=== PATIENT | male | born 1925 | race Caucasian/White ===

== ENCOUNTER 2017-01-27 19:44 | Inpatient (IN) | payer OTHER ==
[~2017-01-27] VITALS: Ht 170.2 cm; Wt 92.9 kg
--- NOTE | ~2017-01-27 | 2DMMODE ---
[facility] Daniela [address] [address] 2 D/M-MODE ECHOCARDIOGRAM Name: PERSAUDGEORGIA Room #: 315-P ADM IN M.R.#: [id number] Admission: 01/27/17 Attend Phys: Chanel Leung Discharge: Date of : [birth year]/19/[birth year] Date of Service: 01/28/17 1400 Report #: [id number] THIS REPORT FOR: //name// APPROVED REPORT Study performed: 01/28/2017 12:23:39 EXAM: Comprehensive 2D, Doppler, and color-flow Echocardiogram Patient Location: Bedside Room #: 315 Blood Pressure: 137/79 mmHg HR: 88 bpm Rhythm: Atrial Fibrillation Other Information Study Quality: Adequate Indications Atrial Fibrillation CAD Hypertension/HDD 2D Dimensions RVDd: 38.45 mm Volumes Left Atrial Volume (Systole) Single Plane 4CH: 65.49 mL Single Plane 2CH: 54.40 mL LA ESV Index: 34.00 mL/m2 Aortic Valve AoV Peak Everette.: 1.20 m/s AO Peak Gr.: 5.78 mmHg LVOT Max P.90 mmHg LVOT Max V: 0.69 m/s Mitral Valve MV Decel. Time: 163.72 ms MV E Max Everette.: 1.31 m/s Pulmonary Valve PV Peak Everette.: 0.65 m/s PV Peak Gr.: 1.66 mmHg [facility] [address] [place] [address] 2 D/M-MODE ECHOCARDIOGRAM Name: GEORGIA PERSAUD Room #: 315-P ADM IN M.R.#: [id number] Admission: 01/27/17 Attend Phys: Chanel Leung Discharge: Date of : 12/19/[birth year] Date of Service: 01/28/17 1400 Report #: [id number] Tricuspid Valve TR Peak Everette.: 2.42 m/s TR Peak Gr.: 23.46 mmHg Left Ventricle The left ventricle is normal size. There is normal LV segmental wall motion. The left ventricular systolic function is normal. The left ventricular ejection fraction is within the normal range. LVEF is 55-60%. Diastolic function cannot accurately assessed. Right Ventricle The right ventricle is normal size. The right ventricular systolic function is normal. Atria Left atrium is at the upper limits of normal. Right atrium is dilated. Aortic Valve The aortic valve is calcified Trace to mild aortic regurgitation. There is no aortic valvular stenosis. Mitral Valve Mild mitral annular calcification Mild mitral regurgitation. No evidence of mitral valve stenosis. Tricuspid Valve The tricuspid valve is normal in structure. There is no tricuspid valve stenosis. There is mild tricuspid regurgitation. The right atrial pressure is estimated at mmHg. There is no pulmonary hypertension. The estimated PAP was 23 mmHg. Plus the right atrial pressure. Pulmonic Valve The pulmonary valve is normal in structure. There is no pulmonic valvular regurgitation. Great Vessels The aortic root is normal in size. IVC is not well visualized. Pericardium There is no pericardial effusion. <Conclusion> The left ventricular systolic function is normal. [facility] [address] [place] [address] 2 D/M-MODE ECHOCARDIOGRAM Name: GEORGIA PERSAUD Room #: 315-P ADM IN M.R.#: [id number] Admission: 01/27/17 Attend Phys: Chanel Leung Discharge: Date of : 12/19/[birth year] Date of Service: 01/28/17 1400 Report #: [id number] There is normal LV segmental wall motion. LVEF 55-60%. Both atria are dilated. The aortic valve is calcified, not stenotic. Trace to mild aortic regurgitation. Mild mitral annular calcification Mild mitral regurgitation. There is no pericardial effusion. Pulmonary artery pressure was 23 mmHg. Plus the right atrial pressure. <ELECTRONICALLY SIGNED> By: Shamar Larson MD, FACC 01/28/17 1400 1400 99 Shamar Larson MD, FACC /INF
--- NOTE | ~2017-01-27 | HC ---
[facility] [place] [address] CONSULTATION Name: GEORGIA PERSAUD Room #: 462-P ADM IN M.R.#: [id number] Admission: 01/27/17 Attend Phys: Garland Bravo MD Discharge: Date of : 12/19/[birth year] Report #: [id number] THIS REPORT FOR: //name// CC: Josue Bravo PULMONARY CONSULTATION PRIMARY CARE PHYSICIAN: Josue Vera M.D. REFERRAL PHYSICIAN: Garland Bravo M.D. REASON FOR REFERRAL: Acute hypercapnic hypoxic respiratory failure. HISTORY OF PRESENT ILLNESS: The patient is an 89-year-old white male who has been admitted for bowel obstruction. He subsequently underwent bowel surgery. He has been admitted since 01/27/2017. Surgery was performed on 01/30/2017. He is felt to have small-bowel obstruction. Early this morning, the patient was found to be difficult to arouse. Arterial blood gas shows hypercapnic hypoxic respiratory failure. A pulmonary consultation was requested. The patient was not given any narcotics overnight. At present, he is more arousable on BiPAP. He follows some commands. He does not know what year this is. Otherwise, he denies any chest pain or dyspnea. PAST MEDICAL HISTORY: As mentioned above, including chronic atrial fibrillation, on chronic anticoagulation; coronary artery disease, undergone coronary artery bypass surgery in the past; hypotension; benign prostate hypertrophy and hyperlipidemia. PAST SURGICAL HISTORY: As mentioned above, including past history of colectomy and left knee arthroplasty. ALLERGIES: CONTRAST DYE, FENOFIBRATE and SIMVASTATIN, reactions not specified. MEDICATIONS: Reviewed. FAMILY HISTORY: Noncontributory. SOCIAL HISTORY: The patient has smoked, but quit more than 30 years ago. He drinks occasional alcohol. The patient is and he is retired. [facility] [address] [address] CONSULTATION Name: PERSAUDGEORGIA Room #: 462-P [facility] IN [facility].#: [id number] Admission: 01/27/17 Attend Phys: Garland Bravo MD Discharge: Date of : 12/19/[birth year] Report #: [id number] REVIEW OF SYSTEMS: Deferred as the patient is somewhat somnolent, though he is arousable. PHYSICAL EXAMINATION: GENERAL: On exam, he is in no distress, appears somewhat sleepy. VITAL SIGNS: Temperature is 97 degrees Fahrenheit, pulse is 140 to 90 beats per minute, respiratory rate is 20, blood pressure 122/86 mmHg and saturation is 96%. HEENT: Normocephalic, atraumatic. NECK: Supple, without lymphadenopathy or thyromegaly. CHEST: Breath sounds are decreased, but without wheezes. Few scattered crackles in the bases. CARDIOVASCULAR: No obvious murmurs or gallop. Pulses are 2+/4+ bilaterally. It is irregularly irregular. ABDOMEN: Mildly distended. It is mildly taut, but nontender. GENITOURINARY: Deferred. RECTAL: Deferred. EXTREMITIES: There is no cyanosis or clubbing, but remarkable 1/4+ bilateral pretibial edema. LABORATORY DATA: Portable chest x-ray performed earlier today shows an elevated left hemidiaphragm, which appears to be somewhat chronic; small lung bilaterally and increased abdominal gas pattern is again noted. Electrolytes are normal, creatinine is 0.9. WBC 9400, hemoglobin is 14.7 and platelets are normal. Albumin 2.7. Arterial blood gas on admission revealed pH of 7.43, pCO2 of 32 and pO2 of 100 on room air. Arterial blood gas earlier today revealed pH of 7.27, pCO2 of 57 and pO2 of 100. IMPRESSION: 1. Acute hypercapnic respiratory failure in this 89-year-old white male. Etiology is unclear, but may be related to hypoventilation, possible sleep-related breathing disorder. It appears the patient has not received narcotics. Presently, he is much more alert and improved. Given his advanced age, hypoventilation syndrome is more likely. His chest x-ray also shows elevated left hemidiaphragm, resulting probably in restrictive ventilatory defect. Pneumonia is felt to be less likely. 2. Recent laparotomy, now with small-bowel obstruction. Chest x-ray again showed retained gas pattern. 3. Coronary artery disease with past history of coronary artery bypass surgery. 4. Permanent atrial fibrillation, on chronic anticoagulation. RECOMMENDATIONS: The patient is more awake at this time. We will try to keep his saturation 90%. Try to minimize narcotics and sedatives as you are. Increased ambulation will be helpful. Once bowel function improves, suspect his chest mechanics should improve ventilation. Chest physiotherapy including incentive spirometry will be recommended. For now, we will continue to monitor [facility] [address] [place] [address] CONSULTATION Name: GEORGIA PERSAUD Room #: 462-P ADM IN M.R.#: [id number] Admission: 01/27/17 Attend Phys: Garlnad Bravo MD Discharge: Date of : 12/19/[birth year] Report #: [id number] along with followup chest x-rays. Thank you for this consultation. <ELECTRONICALLY SIGNED> By: Vinh Velez MD 02/12/17 1124 1206 1518 Vinh Velez MD /nt
--- NOTE | ~2017-01-27 | HC ---
[facility] [place] [address] CONSULTATION Name: GEORGIA PERSAUD Room #: 462-P ADM IN M.R.#: [id number] Admission: 01/27/17 Attend Phys: Garland Bravo MD Discharge: Date of : 12/19/[birth year] Report #: [id number] THIS REPORT FOR: //name// CC: Josue Bravo DICTATED BY: La AMBROCIO HISTORY OF PRESENT ILLNESS: This is an 89-year-old gentleman who was admitted on January 27 secondary to small-bowel obstruction is now postoperative in the medical telemetry floor. We are asked to see him in cardiovascular consultation on February 05 secondary to respiratory distress and elevated troponin. REVIEW OF SYSTEMS: Limited due to respiratory distress and the use of BiPAP. He is also undergoing an echocardiogram during my visit. There is no family in the room available for discussion. The patient has reported increased dyspnea and evidence of respiratory distress according to the nurse. There is no complaint of chest pain. He became more hypoxic and is now on BiPAP with an abnormal ABG. Due to the respiratory distress, he has developed some tachycardia as seen on the telemetry. There has been no report of palpitations, lightheaded or syncopal events. Otherwise 12-point review of systems negative except as detailed above. PAST MEDICAL HISTORY: Coronary artery bypass grafting x 5 in 1998, a percutaneous intervention in 2013 of vein graft to the right coronary artery. He has a known DAMIAN to the LAD and a vein graft to the circumflex. He has postoperative left total knee replacement and most recently small-bowel obstruction with surgical intervention. He has had a prior colon resection. He has been treated for hypertension, permanent atrial fibrillation with rate control and chronic anticoagulation, benign prostatic hypertrophy and dyslipidemia. SOCIAL HISTORY: He is . Occasional alcoholic beverage. No tobacco use for greater than 30 years and he is retired. FAMILY HISTORY: Negative for premature coronary artery disease and essentially noncontributory. MEDICATIONS: He is currently taking lisinopril 5 mg daily, Toprol 2.5 mg IV q. 6 hours, aspirin daily, Xarelto was restarted January 28, Protonix 40 mg daily, Proscar 5 mg daily. ALLERGIES: IODINE, SIMVASTATIN, FENOFIBRATE. PHYSICAL EXAMINATION: [facility] [address] [place] [address] CONSULTATION Name: HUNGGEORGIA BERNARDINO Room #: 462-P [facility] IN .R.#: [id number] Admission: 01/27/17 Attend Phys: Garland Bravo MD Discharge: Date of : [birth year]/19/[birth year] Report #: [id number] GENERAL: An 89-year-old gentleman in moderate respiratory distress, currently on the BiPAP. SKIN: Pale, warm, dry. HEENT: Dry mucous membranes, dry. LUNGS: Sound diminished with few scattered rhonchi. CARDIAC: Irregularly irregular rhythm. No rub noted. ABDOMEN: Soft, bowel sounds present. EXTREMITIES: Warm, nonpitting edema, diminished distal pulses. There is an echocardiogram done January 27. It shows preserved LV function of 55-60%, right atrial enlargement. Repeat echocardiogram is currently pending. CT of his head today shows no acute process. He is currently afebrile. He has atrial fibrillation with a rate in the 120s-140s, blood pressure is 122/80. LABORATORY DATA: Sodium 145, potassium 4.0, BUN 6, creatinine 0.9. Troponin positive at 1.3, hemoglobin 14.7, white count 9.4. ABG, pH 7.2, pO2 of 98.2, pCO2 of 71.6. IMPRESSION: 1. Hypercapnic respiratory distress. 2. Non-ST elevation myocardial infarction in the setting of respiratory distress. 3. Permanent atrial fibrillation, now with tachycardic response secondary to physiological respiratory distress. 4. Postoperative small-bowel obstruction. RECOMMENDATIONS AND PLAN: We will continue anticoagulation, obtain more adequate rate control. Monitor him on the telemetry floor. A pulmonary consultation is currently pending. We will continue anticoagulation, obtain more adequate rate control, follow him on the telemetry floor. Further recommendation and plan to be forthcoming. Thank you for allowing us to participate. <ELECTRONICALLY SIGNED> By: John Ames MD, FACC 02/11/17 0855 1540 1919 John Ames MD, FACC /nt
--- NOTE | ~2017-01-27 | HC ---
[facility] [place] [address] CONSULTATION Name: GEORGIA PERSAUD Room #: 462-P ADM IN M.R.#: [id number] Admission: 01/27/17 Attend Phys: Garland Bravo MD Discharge: Date of : 12/19/[birth year] Report #: [id number] THIS REPORT FOR: //name// CC: Josue Bravo HISTORY OF PRESENT ILLNESS: The patient is an 89-year-old male who presents with altered mental status. The patient initially presented with small-bowel obstruction and has had surgery for this. However, earlier today, the patient presented with an episode of altered mental status. He had a CT scan and MRI of the head and no acute findings were noted. The MRI of the head done at 8:30 this evening demonstrates moderate generalized atrophy and mild microvascular disease. The patient is now asleep and is very difficult to arouse. Apparently, this is similar to the episode he had earlier. The patient was apparently supposed to be on BiPAP, but is only on 2 liters nasal cannula. The patient is unable to provide any history. PAST MEDICAL HISTORY: Chronic atrial fibrillation, coronary artery disease, benign prostatic hypertrophy, hyperlipidemia. PAST SURGICAL HISTORY: Coronary artery bypass graft, colectomy, left knee arthroplasty. MEDICATIONS: Metoprolol 50 mg daily, pantoprazole 40 mg daily, Proscar 5 mg daily, Xarelto 20 mg daily. ALLERGIES: CONTRAST DYE, SIMVASTATIN, FENOFIBRATE. PHYSICAL EXAMINATION: VITAL SIGNS: Temperature is 36.4, pulse rate 96, respiratory rate 26, blood pressure 107/68, bedside pulse oximetry 91% on 3 liters nasal cannula. LABORATORY DATA: White blood cell count 13.1, hemoglobin 13.3, hematocrit 40.6, MCV 95.4, platelet count 215,000. Chemistry: Sodium 138, potassium 4, chloride 105, carbon dioxide 33, BUN 11, creatinine 0.7, GFR 106. NEUROLOGIC: Pupils moderate in size and slightly reactive to light. Corneal reflex is present. The patient is breathing on his own. The extremities are flaccid, tone is normal in both upper extremities and symmetrical bilaterally. Plantar responses are flexor bilaterally. Coordination and gait cannot be tested. IMPRESSION: This patient appears to be asleep. As I was discussing the patient [address] [address] CONSULTATION Name: HUNGGEORGIA BERNARDINO Room #: 462-P [facility] IN .R.#: [id number] Admission: 01/27/17 Attend Phys: Garland Bravo MD Discharge: Date of : 12/19/[birth year] Report #: [id number] with the nurse Dr. Love came by and stated that the patient should be on BiPAP, not 3 liters oxygen via nasal cannula and the BiPAP is now being set up for the patient. With the earlier episode today, it does not appear to have been secondary to stroke as the MRI head was normal. If these episodes of altered consciousness continue then an electroencephalogram may be helpful to make certain the patient is not having subclinical seizures. I thank you for your kind referral the patient and will continue to follow him with you. By: [id number] Jennifer Jung DO /nt
--- NOTE | ~2017-01-27 | EKG ---
[address] [address] ELECTROCARDIOGRAM REPORT Name: GEORGIA PERSAUD Room #: 462-P ADM IN M.R.#: [id number] Admission: 01/27/17 Attend Phys: Garland Bravo MD Discharge: Date of : 12/19/[birth year] Report #: [id number] THIS REPORT FOR: //name// [facility] Test Date: 2017-02-08 Test Time: 18:34:56 Pat Name: GEORGIA PERSAUD Department: Room: 462 P Gender: M Knockout Man: katharine : 1925 Requested By: Iman Irwin Order Number: [id number] MD: Williams Jones Measurements Intervals Scott Rate: 98 P: MN: QRS: -38 QRSD: 83 T: 89 QT: 305 QTc: 390 Interpretive Statements Atrial fibrillation Inferior infarct, old Anterior infarct, old Baseline wander in lead(s) V6 Compared to ECG 01/27/2017 20:25:02 Poor R-wave progression no longer present Myocardial infarct finding still present Electronically Signed On 02-11-2017 8:30:14 CDT by Williams Jones [email or web address] <ELECTRONICALLY SIGNED> By: Williams Jones MD 02/11/17 0830 1834 1834 Williams Jones MD /EPI
--- NOTE | ~2017-01-27 | O ---
[facility] [place] [address] OPERATIVE REPORT Name: GEORGIA PERSAUD Room #: 314-P ADM IN M.R.#: [id number] Admission: 01/27/17 Attend Phys: Chanel Leung MD Discharge: Date of : [birth year]/19/[birth year] Report #: [id number] THIS REPORT FOR: //name// CC: Josue Leung DATE OF SERVICE: 01/30/2017 PREOPERATIVE DIAGNOSIS: Small-bowel obstruction, multiple prior abdominal operations. POSTOPERATIVE DIAGNOSIS: Small-bowel obstruction, extensive intra-abdominal adhesions. SURGEON: Santos Villafuerte M.D. DEAL[employer] ACC[employer]S INVESTIGATOR: Viktoriya Bailey, nurse practitioner. PROCEDURE: Diagnostic laparoscopy converted to laparotomy, extensive adhesiolysis for approximately 65 minutes, release of small-bowel obstruction, application of Prevena external negative pressure therapy device. FINDINGS: Extensive intra-abdominal adhesions with several loops of small bowel adherent to the mesenteric root from adhesions as well as adhesions of omentum up to the anterior abdominal wall along a midline celiotomy site. No obvious mass lesions identified. ANESTHESIA: General endotracheal anesthesia as well as local anesthetic in the form of 0.5% Marcaine with epinephrine. ESTIMATED BLOOD LOSS: 100 mL. IV FLUIDS: See anesthesia record. DRAINS PLACED: Nasogastric tube kept to low intermittent wall suction. This was palpated within the body of the stomach in proper position , Verde catheter placed to dependent drainage. COMPLICATIONS: None. SPECIMENS TO PATHOLOGY: None. INDICATION FOR PROCEDURE: The patient is a very pleasant 89-year-old gentleman with history of nausea, vomiting and distention over the past several days. He has history of prior abdominal operations including a colon resection in the distant past. He is admitted with small-bowel obstruction, which has been refractory to nasogastric decompression over the past several days. Ultimately [facility] [address] [place] [address] OPERATIVE REPORT Name: GEORGIA PERSAUD Room #: 314-P [facility] IN ..#: [id number] Admission: 01/27/17 Attend Phys: Chanel Leung MD Discharge: Date of : [birth year]/19/[birth year] Report #: [id number] after conservative measures have failed, discussion of the risks and benefits of diagnostic laparoscopy with release of small-bowel obstruction has been discussed in detail. All questions were answered regarding the risks and benefits of the procedure and written informed consent was obtained. Risks including need for bowel resection, possible need to reopening his old incision, possible ostomy, possible damage to surrounding structures, possible need for further future interventions were all discussed in detail. DESCRIPTION OF PROCEDURE: The patient was brought to the operating room and placed in a supine position. Timeout was taken to verify the patient's identity and to plan the procedure. SCDs were in place on the lower extremities bilaterally. Preoperative antibiotics were administered. Anesthesia was induced. The patient was intubated. Abdomen was sterilely prepped and draped in standard fashion. Right upper quadrant 5-mm incision was made after local anesthetic had been infiltrated. A 5 mm 0-degree laparoscope was inserted with direct visual technique and pneumoperitoneum was created. Inspection of the viscera showed that no injury had occurred upon entry. A 5-mm right lateral port and a 5-mm right lower quadrant port were placed under direct visualization. There were noted to be several loops of significantly distended hyperemic small bowel, which appeared to be adherent to the root of the mesentery. The omentum was adherent along the entire midline laparotomy from prior operation. Lysis of adhesions was commenced using sharp dissection and Sonicision energy device to take down the omentum along the midline incision. Once this was completed, small bowel was run from the terminal ileum back proximal to this area where at least 3 loops of small bowel were confluent and adherent in a twisting fashion near the root of the mesentery. Attempts were made to reduce this laparoscopic, but secondary to the inflamed distended nature of the small bowel which had not been adequately decompressed by the nasogastric tube for some reason, decision was made to convert to open laparotomy for a better visualization of the problem area. Therefore, the laparoscope was withdrawn. The 5 mm ports were withdrawn and midline celiotomy was opened along the patient's prior midline incision. The viscera immediately protruded from the celiotomy and the site near the root of the mesentery was easily visible, three loops of small bowel which were confluent and tightly adherent to the mesenteric root. Careful sharp dissection using Metzenbaum scissors was performed in a meticulous fashion which allowed the small bowel to unwind. The small bowel was then run from ligament of Treitz to terminal ileum multiple times to verify that no obvious enterotomies or serosal injuries were identified, none were identified that required repair. The small bowel was then milked back toward the stomach and significant nasogastric output was reported from anesthesia. The nasogastric tube was repositioned and palpated within the body of the stomach and noted to be in good position where it was secured at the nose by anesthesia. Intra-abdominal contents were then carefully examined again and the colon was examined from cecum up to the transverse colon and descending colon, no obvious lesions or masses were identified and the small bowel did appear to be viable and no resection was [address] [address] OPERATIVE REPORT Name: GEORGIA PERSAUD Room #: 314-P ADM IN M.R.#: [id number] Admission: 01/27/17 Attend Phys: Chanel Leung MD Discharge: Date of : 12/19/[birth year] Report #: [id number] necessary. No other obvious abnormalities were identified and therefore the abdominal contents were irrigated with copious sterile saline of several liters and suctioned clear using a pool sucker device. Hemostasis was carefully verified. The midline wound was then closed in layered fashion using running looped #1 PDS suture x 2, which were joined at the umbilicus. The subcutaneous tissue was irrigated with copious sterile saline and suctioned clear. Hemostasis was again carefully verified. The skin was then closed using skin zheng. The 3 laparoscopic ports were similarly closed using skin zheng. A Prevena external negative pressure therapy device was placed along the midline wound and sterile dressings were applied over the 3 laparoscopic ports. At this point, the case was ended. All instrumentation had been extracted and accounted for. All counts were correct per nurse report. The patient was then extubated and taken to the postoperative care unit in stable condition. <ELECTRONICALLY SIGNED> By: Santos Villafuerte MD 02/01/17 0648 1112 1156 Santos Villafuerte MD /nt
--- NOTE | ~2017-01-27 | 2DMMODE ---
[facility] [address] [place] [address] 2 D/M-MODE ECHOCARDIOGRAM Name: PERSAUDGEORGIA BERNARDINO Room #: 462-P ADM IN M.R.#: [id number] Admission: 01/27/17 Attend Phys: Antonio Hall Discharge: Date of : [birth year] Date of Service: 02/05/17 1754 Report #: [id number] THIS REPORT FOR: //name// APPROVED REPORT Study performed: 02/05/2017 13:55:43 EXAM: Limited 2D, Doppler, and color-flow Echocardiogram Patient Location: Bedside Room #: 462 Blood Pressure: 122/86 mmHg HR: 113 bpm Rhythm: Atrial Fibrillation Other Information Study Quality: Poor Technically limited study due to no patient mobility. Sitting up in bed on bipap. limited window availability. surgical bandages. Indications Limited echo for LV function due to elevated troponin. Hx: CABG, Afib (Complete echo done 01/28/17) Tricuspid Valve TR Peak [place].: 2.37 m/s TR Peak Gr.: 22.51 mmHg Left Ventricle The left ventricle is normal size. LV function is difficult to assess due to Afib with heart rates between 100-120. However, overall function does appear to be reduced. LVEF is 45-50%. Right Ventricle Right ventricle is not well visualized. Atria Right atrium is dilated. Aortic Valve The aortic valve is not well visualized. Mild aortic regurgitation. [facility] [address] [place] [address] 2 D/M-MODE ECHOCARDIOGRAM Name: GEORGIA PERSAUD Room #: 462-P ADM IN M.R.#: [id number] Admission: 01/27/17 Attend Phys: Antonio Hall Discharge: Date of : [birth year] Date of Service: 02/05/17 1754 Report #: [id number] Mitral Valve Mild to moderate mitral regurgitation. Tricuspid Valve There is moderate tricuspid regurgitation. Estimated PAP is 23mmHg plus the right atrial pressure. Great Vessels The inferior vena cava is not well visualized. <Conclusion> The left ventricle is normal size. LV function is difficult to assess due to Afib with heart rates between 100-120. However, overall function does appear to be reduced. LVEF is 45-50%. Right atrium is dilated. The aortic valve is not well visualized. Mild aortic regurgitation. Mild to moderate mitral regurgitation. There is moderate tricuspid regurgitation. Estimated PAP is 23mmHg plus the right atrial pressure. <ELECTRONICALLY SIGNED> By: Austin Palmer MD 02/05/171753 53 53 Austin Palmer MD /INF
--- NOTE | ~2017-01-27 | EKG ---
[place] [address] [address] [place] [address] ELECTROCARDIOGRAM REPORT Name: GEORGIA PERSAUD Room #: 462-P ADM IN M.R.#: [id number] Admission: 01/27/17 Attend Phys: Garland Bravo MD Discharge: Date of : [birth year] Report #: [id number] THIS REPORT FOR: //name// [facility] Test Date: 2017-02-05 Test Time: 12:41:15 Pat Name: GEORGIA PERSAUD Department: Room: 462 Gender: M Loss Claim Clerk: Abel CANALES : 1925 Requested By: Garland Bravo Order Number: [id number] MD: Williams Jones Measurements Intervals [place] Rate: 119 P: [place]: QRS: -27 QRSD: 80 T: 109 QT: 320 QTc: 451 Interpretive Statements Atrial fibrillation Ventricular premature complex Abnormal R-wave progression, early transition Inferior infarct, old Lateral leads are also involved Compared to ECG 01/27/2017 20:25:02 Ventricular premature complex(es) now present Poor R-wave progression no longer present Myocardial infarct finding still present Electronically Signed On 02-11-2017 7:41:42 CDT by Williams Jones [email or web address] <ELECTRONICALLY SIGNED> By: Williams Jones MD 02/11/17 0741 1241 1241 Williams Jones MD /EPI
--- NOTE | ~2017-01-27 | EKG ---
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 : 1925 Requested By: Cabrera Dickson Order Number: [id number] MD: Shamar Larson Measurements Intervals [place] Rate: 99 P: [place]: QRS: -34 QRSD: 75 T: 3 QT: 314 QTc: 403 Interpretive Statements Atrial fibrillation Inferior infarct, old Poor R wave progression The inferior infarct, age indeterminate Compared to ECG 04/01/2016 07:31:37 nonspecific change in the ST and T wave segments Electronically Signed On 01-29-2017 8:36:29 CDT by Shamar Larson [email or web address] <ELECTRONICALLY SIGNED> By: Shamar Larson MD, [facility] 01/29/17 0836 24 24 Shamar Larson MD, [facility] /EPI
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
[~2017-01-27 19:44] MED LIST: ACCUNEB SO1.25 MG/1; ALLEGRA ALLERG180 MG PO; APAP500 PO; ASA81BEC PO; ASPIR 8181 MG PO; BRILINTA90 MG PO; CELEBREX 200 M200 M1 PO; FISH OIL 1,001000 M2 PO; FLOMAX0.4 MG PO; LISINOPRIL10 MG PO; LISINOPRIL5 MG PO; LOPERAMIDE 2 MG2 M1 PO; METAMUCIL1 EAC1 PO; METOPROLOL SUCC25 M1 PO; MIRALAX17 G1 PO; MIRALAX17 GM PO; MUCINEX TA600 MG/TA2 PO; NASONEX17 GM NASAL; NEURONTIN 300300 M1 PO; PLAVIX 75 MG TA75 M1 PO; PRAVACHOL40 MG PO; PROSCAR 5MG TABL5 MG PO; RAPAFLO8 MG PO; SYMBICORT160 MCG/4. INH; SYMBICORT80 MCG/4.1 INH; TYLENOL325 MG PO; VENTOLIN HFA 1818 GM INH; XARELTO20 MG PO; ZANTAC 150MG T150 MG PO; ZANTAC300 MG PO
[2017-01-27 19:59] VITALS: BP 143/84
[2017-01-27 20:34] LABS: HEMATOCRIT 54.7 % (42.0-52.0); HEMOGLOBIN 18.4 gm/dL (14.0-18.0); MCH 31.7 pg (26.0-34.0); MCHC 33.6 g/dL (28.0-37.0); MCV 94.2 fL (80.0-100.0); PLATELET COUNT 176 thou/uL (150-400); RDW 13.9 % (10.5-14.5); WBC 10.7 thou/uL (4.0-11.0)
[2017-01-27 20:35] LABS: MANUAL DIFF YES
[2017-01-27 20:46] LABS: ANION GAP 10 mmol/L (7-16); BUN 21 mg/dL (7-18); CALCIUM 10.5 mg/dL (8.5-10.1); CHLORIDE 99 mmol/L (98-107); CO2 31 mmol/L (21-32); CREATININE 1.1 mg/dL (0.7-1.3); GLUCOSE 153 mg/dL (74-106); POTASSIUM 4.2 mmol/L (3.5-5.1); SODIUM 140 mmol/L (136-145)
[2017-01-27 20:57] LABS: ALKALINE PHOSPHATASE 64 U/L (46-116); DIRECT BILIRUBIN 0.2 mg/dL (<0.1-0.3); SGOT 16 U/L (15-37); SGPT 16 U/L (30-65); TOTAL BILIRUBIN 3.6 mg/dL (<0.1-1.0); TOTAL PROTEIN 7.7 g/dL (6.4-8.2); TROPONIN-I < 0.04 ng/mL (<0.04-0.07)
[2017-01-27 21:05] LABS: URINE BLOOD 3+ (Negative); URINE COLOR YELLOW; URINE GLUCOSE-RANDOM* NEGATIVE (Negative); URINE KETONES TRACE (Negative); URINE NITRITE NEGATIVE (Negative); URINE PROTEIN (DIPSTICK) 1+ (Negative); URINE SPECIFIC GRAVITY >= 1.030 (1.003-1.035)
[2017-01-27 21:05] LABS: TOTAL CELL COUNT 100
[2017-01-27 21:08] LABS: URINE BILIRUBIN NEGATIVE (Negative)
[2017-01-27 21:09] VITALS: BP 143/65
[2017-01-27 21:15] LABS: SQUAMOUS None Seen /LPF (0-3); URINE WBC 0-5 Rare /HPF (0-5)
[2017-01-27 21:16] LABS: CASTS None Seen /LPF (None Seen); CRYSTALS None Seen /LPF (None Seen)
[2017-01-27 23:24] VITALS: BP 133/72
[2017-01-28 00:49] VITALS: BP 141/61
[2017-01-28 03:19] LABS: HEMATOCRIT 49.2 % (42.0-52.0); MCH 31.8 pg (26.0-34.0); MCHC 33.2 g/dL (28.0-37.0); MCV 95.7 fL (80.0-100.0); RBC 5.14 mil/uL (4.50-6.00); WBC 10.1 thou/uL (4.0-11.0)
[2017-01-28 03:36] LABS: HEMOGLOBIN 16.4 gm/dL (14.0-18.0)
[2017-01-28 03:38] LABS: ALBUMIN 3.6 g/dL (3.4-5.0); CALCIUM 9.5 mg/dL (8.5-10.1); POTASSIUM 5.1 mmol/L (3.5-5.1); TOTAL BILIRUBIN 2.8 mg/dL (<0.1-1.0)
[2017-01-28 05:40] VITALS: BP 137/79
[2017-01-28 09:19] VITALS: BP 139/85
[2017-01-28 13:38] VITALS: BP 136/72
[2017-01-28 13:50] LABS: ABG SAMPLE TYPE ARTERIAL; BE(vivo) 3.2 mmol/L (-2 to +3); HCO3 27.5 mmol/L (22.0-26.0); LACTATE 1.41 mmol/L (0.5-2.0); O2(CT) 21.5 mL/dL (15.0-23.0); PCO2 40.5 mmHg (35.0-45.0); pH 7.449 (7.360-7.450); sO2 94.7 % (92.0-98.0); tCO2 28.7 mmol/L (24.0-30.0)
[2017-01-28 13:51] LABS: STICK SITE R.RADIAL
[2017-01-28 18:03] VITALS: BP 155/86
[2017-01-28 19:36] VITALS: BP 130/71
[2017-01-29 04:17] VITALS: BP 126/61
[2017-01-29 05:43] LABS: HEMATOCRIT 46.8 % (42.0-52.0); HEMOGLOBIN 15.8 gm/dL (14.0-18.0); MCHC 33.8 g/dL (28.0-37.0); MCV 94.9 fL (80.0-100.0); PLATELET COUNT 142 thou/uL (150-400); RBC 4.93 mil/uL (4.50-6.00); RDW 13.7 % (10.5-14.5); WBC 6.1 thou/uL (4.0-11.0)
[2017-01-29 05:57] LABS: MAGNESIUM 1.7 mg/dL (1.8-2.4); PHOSPHORUS 3.3 mg/dL (2.5-4.9); POTASSIUM 4.1 mmol/L (3.5-5.1); TOTAL BILIRUBIN 3.3 mg/dL (<0.1-1.0); TOTAL PROTEIN 5.8 g/dL (6.4-8.2)
[2017-01-29 06:27] LABS: MANUAL DIFF YES
[2017-01-29 08:00] VITALS: BP 141/77
[2017-01-29 09:10] LABS: ABSOLUTE NEUTROPHILS 4.1 thou/uL (1.4-8.2); TOTAL CELL COUNT 100
[2017-01-29 09:11] LABS: ANISOCYTOSIS SLIGHT
[2017-01-29 12:00] VITALS: BP 141/91
[2017-01-29 16:00] VITALS: BP 144/99
[2017-01-29 19:15] VITALS: BP 134/55
[2017-01-30] VITALS (13 sets, daily range): BP systolic 98–157; BP diastolic 37–102
[2017-01-30 06:26] LABS: HEMATOCRIT 46.4 % (42.0-52.0); HEMOGLOBIN 15.9 gm/dL (14.0-18.0); MCH 32.3 pg (26.0-34.0); MCHC 34.2 g/dL (28.0-37.0); MCV 94.6 fL (80.0-100.0); PLATELET COUNT 142 thou/uL (150-400); RBC 4.91 mil/uL (4.50-6.00); RDW 13.3 % (10.5-14.5)
[2017-01-30 06:32] LABS: MANUAL DIFF YES
[2017-01-30 06:50] LABS: CREATININE 0.9 mg/dL (0.7-1.3); OBSERVED RETIC COUNT 1.48 % (0.6-2.6); POTASSIUM 3.3 mmol/L (3.5-5.1)
[2017-01-30 08:59] LABS: ABSOLUTE NEUTROPHILS 2.1 thou/uL (1.4-8.2); ANISOCYTOSIS SLIGHT; TOTAL CELL COUNT 100
[2017-01-30 09:00] LABS: OVALOCYTES FEW
[2017-01-31] VITALS (7 sets, daily range): BP systolic 92–148; BP diastolic 57–98
[2017-01-31 06:20] LABS: ABSOLUTE NEUTROPHILS 5.5 thou/uL (1.4-8.2); BASOPHILS 0.1 % (0.0-2.0); HEMATOCRIT 47.9 % (42.0-52.0); HEMOGLOBIN 15.7 gm/dL (14.0-18.0); LYMPHOCYTES 10.3 % (24.0-44.0); MCH 31.2 pg (26.0-34.0); MCHC 32.7 g/dL (28.0-37.0); MCV 95.3 fL (80.0-100.0); MONOCYTES 9.4 % (1.0-8.0); PLATELET COUNT 135 thou/uL (150-400); POLYS 80.2 % (36.0-66.0); RBC 5.03 mil/uL (4.50-6.00); RDW 13.5 % (10.5-14.5); WBC 6.8 thou/uL (4.0-11.0)
[2017-01-31 06:21] LABS: MANUAL DIFF NO
[2017-01-31 06:36] LABS: ALBUMIN 2.7 g/dL (3.4-5.0); CALCIUM 7.9 mg/dL (8.5-10.1); MAGNESIUM 1.6 mg/dL (1.8-2.4); PHOSPHORUS 3.8 mg/dL (2.5-4.9); POTASSIUM 3.8 mmol/L (3.5-5.1); TOTAL BILIRUBIN 3.5 mg/dL (<0.1-1.0); TOTAL PROTEIN 5.2 g/dL (6.4-8.2)
[2017-01-31 15:44] LABS: ABG SAMPLE TYPE ARTERIAL; BE(vivo) -1.3 mmol/L (-2 to +3); FIO2 21 %; HCO3 21.9 mmol/L (22.0-26.0); LACTATE 2.45 mmol/L (0.5-2.0); O2(CT) 24.7 mL/dL (15.0-23.0); O2Hb 96.8 % (92.0-98.0); PCO2 33.3 mmHg (35.0-45.0); PO2 100.6 mmHg (80.0-100.0); STICK SITE R.RADIAL; pH 7.436 (7.360-7.450); sO2 97.8 % (92.0-98.0); tCO2 22.9 mmol/L (24.0-30.0)
[2017-02-01 04:00] VITALS: BP 138/84
[2017-02-01 05:20] LABS: BASOPHILS 0.3 % (0.0-2.0); EOSINOPHILS 0.8 % (0.0-3.0); HEMOGLOBIN 14.9 gm/dL (14.0-18.0); LYMPHOCYTES 12.1 % (24.0-44.0); MCH 32.1 pg (26.0-34.0); MCHC 33.8 g/dL (28.0-37.0); MCV 95.1 fL (80.0-100.0); MONOCYTES 11.6 % (1.0-8.0); PLATELET COUNT 133 thou/uL (150-400); POLYS 75.2 % (36.0-66.0); RBC 4.63 mil/uL (4.50-6.00); RDW 13.8 % (10.5-14.5); WBC 7.9 thou/uL (4.0-11.0)
[2017-02-01 05:25] LABS: CALCIUM 7.9 mg/dL (8.5-10.1); CREATININE 0.8 mg/dL (0.7-1.3); POTASSIUM 3.3 mmol/L (3.5-5.1)
[2017-02-01 05:26] LABS: MANUAL DIFF NO
[2017-02-01 07:55] VITALS: BP 131/77
[2017-02-01 11:36] VITALS: BP 124/89
[2017-02-01 17:16] VITALS: BP 152/100
[2017-02-01 19:48] LABS: URINE BILIRUBIN 2+ (Negative); URINE BLOOD 3+ (Negative); URINE COLOR YELLOW; URINE GLUCOSE-RANDOM* NEGATIVE (Negative); URINE KETONES 3+ (Negative); URINE LEUKOCYTES-REFLEX NEGATIVE (Negative); URINE PROTEIN (DIPSTICK) 1+ (Negative); URINE SPECIFIC GRAVITY >= 1.030 (1.003-1.035); URINE UROBILINOGEN 0.2 E.U./dl (0.2-1.0)
[2017-02-01 19:58] LABS: ICTOTEST (BILI CONFIRMATORY) Negative (Negative)
[2017-02-01 20:00] LABS: CASTS None Seen /LPF (None Seen); CRYSTALS None Seen /LPF (None Seen); URINE RBC >20 Many /HPF (0-2); URINE WBC-REFLEX 6-15 Few /HPF (0-5)
[2017-02-01 20:01] LABS: SQUAMOUS None Seen /LPF (0-3)
[2017-02-01 20:12] VITALS: BP 164/88
[2017-02-02 03:27] VITALS: BP 145/85
[2017-02-02 06:35] LABS: ABSOLUTE NEUTROPHILS 6.8 thou/uL (1.4-8.2); BASOPHILS 0.6 % (0.0-2.0); EOSINOPHILS 0.9 % (0.0-3.0); HEMATOCRIT 44.7 % (42.0-52.0); HEMOGLOBIN 14.8 gm/dL (14.0-18.0); LYMPHOCYTES 9.8 % (24.0-44.0); MCH 31.5 pg (26.0-34.0); MCHC 33.1 g/dL (28.0-37.0); MCV 95.2 fL (80.0-100.0); MONOCYTES 9.7 % (1.0-8.0); PLATELET COUNT 143 thou/uL (150-400); RDW 13.8 % (10.5-14.5); WBC 8.6 thou/uL (4.0-11.0)
[2017-02-02 06:37] LABS: MANUAL DIFF NO
[2017-02-02 06:43] LABS: CALCIUM 8.2 mg/dL (8.5-10.1); CREATININE 0.7 mg/dL (0.7-1.3); POTASSIUM 3.8 mmol/L (3.5-5.1)
[2017-02-02 07:02] VITALS: BP 139/93
[2017-02-02 11:22] VITALS: BP 140/69
[2017-02-02 15:14] VITALS: BP 166/91
[2017-02-02 19:43] VITALS: BP 158/76
[2017-02-03 04:07] VITALS: BP 156/94
[2017-02-03 05:10] LABS: HEMATOCRIT 45.7 % (42.0-52.0); MCH 31.7 pg (26.0-34.0); MCHC 32.9 g/dL (28.0-37.0); MCV 96.1 fL (80.0-100.0); RBC 4.75 mil/uL (4.50-6.00); RDW 13.6 % (10.5-14.5); WBC 8.1 thou/uL (4.0-11.0)
[2017-02-03 05:29] LABS: CALCIUM 8.3 mg/dL (8.5-10.1); CREATININE 0.6 mg/dL (0.7-1.3); POTASSIUM 3.5 mmol/L (3.5-5.1)
[2017-02-03 08:03] VITALS: BP 152/89
[2017-02-03 14:51] VITALS: BP 159/91
[2017-02-03 17:42] VITALS: BP 152/84
[2017-02-03 19:38] VITALS: BP 133/82
[2017-02-04 04:08] VITALS: BP 171/95
[2017-02-04 05:02] LABS: CALCIUM 8.3 mg/dL (8.5-10.1); CREATININE 0.7 mg/dL (0.7-1.3); POTASSIUM 3.1 mmol/L (3.5-5.1)
[2017-02-04 09:15] VITALS: BP 148/91
[2017-02-04 17:40] VITALS: BP 141/93
[2017-02-04 20:00] VITALS: BP 158/85
[2017-02-05] VITALS (8 sets, daily range): BP systolic 102–145; BP diastolic 64–87
[2017-02-05 10:27] LABS: ABG SAMPLE TYPE ARTERIAL; BE(vivo) -2.1 mmol/L (-2 to +3); HCO3 25.9 mmol/L (22.0-26.0); LACTATE 1.12 mmol/L (0.5-2.0); O2(CT) 20.7 mL/dL (15.0-23.0); O2Hb 96.6 % (92.0-98.0); PCO2 57.5 mmHg (35.0-45.0); PO2 100.1 mmHg (80.0-100.0); sO2 96.7 % (92.0-98.0); tCO2 27.7 mmol/L (24.0-30.0)
[2017-02-05 10:28] LABS: pH 7.272 (7.360-7.450)
[2017-02-05 11:17] LABS: HEMATOCRIT 44.6 % (42.0-52.0); HEMOGLOBIN 14.7 gm/dL (14.0-18.0); MCH 31.4 pg (26.0-34.0); MCHC 32.9 g/dL (28.0-37.0); MCV 95.4 fL (80.0-100.0); RBC 4.67 mil/uL (4.50-6.00); RDW 14.3 % (10.5-14.5); WBC 9.4 thou/uL (4.0-11.0)
[2017-02-05 11:22] LABS: CALCIUM 8.8 mg/dL (8.5-10.1); CREATININE 0.9 mg/dL (0.7-1.3); MAGNESIUM 1.7 mg/dL (1.8-2.4)
[2017-02-05 14:21] LABS: ABG SAMPLE TYPE ARTERIAL; BE(vivo) -0.9 mmol/L (-2 to +3); HCO3 28.9 mmol/L (22.0-26.0); LACTATE 0.86 mmol/L (0.5-2.0); O2(CT) 20.9 mL/dL (15.0-23.0); PCO2 71.6 mmHg (35.0-45.0); PO2 98.2 mmHg (80.0-100.0); STICK SITE L.RADIAL; pH 7.224 (7.360-7.450); tCO2 31.1 mmol/L (24.0-30.0)
[2017-02-05 16:24] LABS: ABG SAMPLE TYPE ARTERIAL; BE(vivo) -1.2 mmol/L (-2 to +3); LACTATE 0.97 mmol/L (0.5-2.0); O2(CT) 20.9 mL/dL (15.0-23.0); O2Hb 97.4 % (92.0-98.0); PCO2 53.1 mmHg (35.0-45.0); PO2 115.1 mmHg (80.0-100.0); STICK SITE L.RADIAL; pH 7.307 (7.360-7.450); sO2 97.8 % (92.0-98.0); tCO2 27.6 mmol/L (24.0-30.0)
[2017-02-05 16:25] LABS: Pressure Support 15 cm H20
[2017-02-05 16:26] LABS: VDS BIPAP SPONT TIMED cc
[2017-02-05 18:03] LABS: ALBUMIN 2.4 g/dL (3.4-5.0); DIRECT BILIRUBIN 0.1 mg/dL (<0.1-0.3); TOTAL BILIRUBIN 0.9 mg/dL (<0.1-1.0); TOTAL PROTEIN 5.5 g/dL (6.4-8.2)
[2017-02-05 19:40] LABS: HEMATOCRIT 43.2 % (42.0-52.0); MCH 31.2 pg (26.0-34.0); MCHC 32.4 g/dL (28.0-37.0); MCV 96.2 fL (80.0-100.0); PLATELET COUNT 191 thou/uL (150-400); RBC 4.49 mil/uL (4.50-6.00); RDW 13.8 % (10.5-14.5)
[2017-02-05 19:43] LABS: MANUAL DIFF YES
[2017-02-05 19:59] LABS: ABSOLUTE NEUTROPHILS 7.1 thou/uL (1.4-8.2); TOTAL CELL COUNT 100
[2017-02-05 20:59] LABS: ABG SAMPLE TYPE ARTERIAL; BE(vivo) -0.8 mmol/L (-2 to +3); O2(CT) 19.6 mL/dL (15.0-23.0); O2Hb 96.6 % (92.0-98.0); PCO2 45.5 mmHg (35.0-45.0); PO2 94.4 mmHg (80.0-100.0); pH 7.357 (7.360-7.450); sO2 96.9 % (92.0-98.0); tCO2 26.4 mmol/L (24.0-30.0)
[2017-02-05 21:00] LABS: STICK SITE L.RADIAL
[2017-02-06] VITALS (17 sets, daily range): BP systolic 102–141; BP diastolic 59–93
[2017-02-06 03:45] LABS: HEMATOCRIT 41.3 % (42.0-52.0); HEMOGLOBIN 13.7 gm/dL (14.0-18.0); MCH 31.6 pg (26.0-34.0); MCHC 33.1 g/dL (28.0-37.0); MCV 95.3 fL (80.0-100.0); PLATELET COUNT 192 thou/uL (150-400); RBC 4.34 mil/uL (4.50-6.00); RDW 14.2 % (10.5-14.5); WBC 9.6 thou/uL (4.0-11.0)
[2017-02-06 03:58] LABS: ALBUMIN 2.3 g/dL (3.4-5.0); CALCIUM 8.7 mg/dL (8.5-10.1); CREATININE 0.8 mg/dL (0.7-1.3); MAGNESIUM 1.6 mg/dL (1.8-2.4); MANUAL DIFF YES; POTASSIUM 4.1 mmol/L (3.5-5.1); TOTAL BILIRUBIN 0.9 mg/dL (<0.1-1.0); TOTAL PROTEIN 4.9 g/dL (6.4-8.2)
[2017-02-06 04:43] LABS: ABSOLUTE NEUTROPHILS 8.4 thou/uL (1.4-8.2); TOTAL CELL COUNT 100
[2017-02-06 04:55] LABS: ABG SAMPLE TYPE ARTERIAL; BE(vivo) -0.6 mmol/L (-2 to +3); HCO3 24.9 mmol/L (22.0-26.0); LACTATE 1.01 mmol/L (0.5-2.0); O2(CT) 19.3 mL/dL (15.0-23.0); O2Hb 96.8 % (92.0-98.0); PCO2 44.3 mmHg (35.0-45.0); PO2 100.3 mmHg (80.0-100.0); pH 7.368 (7.360-7.450); sO2 97.4 % (92.0-98.0); tCO2 26.3 mmol/L (24.0-30.0)
[2017-02-06 04:56] LABS: STICK SITE L.RADIAL
[2017-02-07 04:01] VITALS: BP 149/67
[2017-02-07 05:54] LABS: HEMATOCRIT 41.3 % (42.0-52.0); HEMOGLOBIN 13.5 gm/dL (14.0-18.0); MCH 31.1 pg (26.0-34.0); MCHC 32.6 g/dL (28.0-37.0); MCV 95.4 fL (80.0-100.0); PLATELET COUNT 212 thou/uL (150-400); RBC 4.33 mil/uL (4.50-6.00); RDW 13.7 % (10.5-14.5); WBC 13.5 thou/uL (4.0-11.0)
[2017-02-07 06:06] LABS: CALCIUM 8.7 mg/dL (8.5-10.1); CREATININE 0.6 mg/dL (0.7-1.3); MAGNESIUM 1.5 mg/dL (1.8-2.4); POTASSIUM 3.4 mmol/L (3.5-5.1)
[2017-02-07 06:07] LABS: MANUAL DIFF YES
[2017-02-07 07:25] LABS: ABSOLUTE NEUTROPHILS 12.4 thou/uL (1.4-8.2); TOTAL CELL COUNT 100
[2017-02-07 07:26] LABS: ANISOCYTOSIS SLIGHT
[2017-02-07 08:44] VITALS: BP 146/71
[2017-02-07 12:40] VITALS: BP 140/74
[2017-02-07 20:34] VITALS: BP 100/54
[2017-02-08 04:25] VITALS: BP 100/55
[2017-02-08 07:00] LABS: HEMATOCRIT 40.6 % (42.0-52.0); HEMOGLOBIN 13.3 gm/dL (14.0-18.0); MCH 31.3 pg (26.0-34.0); MCHC 32.8 g/dL (28.0-37.0); MCV 95.4 fL (80.0-100.0); RBC 4.25 mil/uL (4.50-6.00); RDW 13.6 % (10.5-14.5); WBC 13.1 thou/uL (4.0-11.0)
[2017-02-08 07:27] LABS: CREATININE 0.7 mg/dL (0.7-1.3)
[2017-02-08 08:13] VITALS: BP 115/74
[2017-02-08 11:57] VITALS: BP 117/65
[2017-02-08 16:00] VITALS: BP 107/53
[2017-02-08 19:44] LABS: CK-MB MASS 2.1 ng/mL (<0.5-3.6)
[2017-02-08 19:48] LABS: TROPONIN-I 0.68 ng/mL (<0.04-0.07)
[2017-02-08 20:46] VITALS: BP 107/68
[2017-02-08 23:35] LABS: CK-MB MASS 1.9 ng/mL (<0.5-3.6)
[2017-02-08 23:43] LABS: TROPONIN-I 0.66 ng/mL (<0.04-0.07)
[2017-02-08 23:59] VITALS: BP 99/52
[2017-02-09 04:00] VITALS: BP 97/55
[2017-02-09 07:45] VITALS: BP 100/65
[2017-02-09 12:20] VITALS: BP 106/51
[2017-02-09 16:17] VITALS: BP 92/53
[2017-02-09 20:56] VITALS: BP 111/63
[2017-02-10 05:08] VITALS: BP 152/75
[2017-02-10 05:32] LABS: ABSOLUTE NEUTROPHILS 8.7 thou/uL (1.4-8.2); BASOPHILS 0.4 % (0.0-2.0); EOSINOPHILS 2.3 % (0.0-3.0); HEMATOCRIT 38.4 % (42.0-52.0); HEMOGLOBIN 12.6 gm/dL (14.0-18.0); LYMPHOCYTES 10.5 % (24.0-44.0); MANUAL DIFF NO; MCH 31.1 pg (26.0-34.0); MCHC 32.8 g/dL (28.0-37.0); MONOCYTES 8.2 % (1.0-8.0); PLATELET COUNT 252 thou/uL (150-400); POLYS 78.6 % (36.0-66.0); RBC 4.04 mil/uL (4.50-6.00); RDW 13.8 % (10.5-14.5); WBC 11.1 thou/uL (4.0-11.0)
[2017-02-10 05:37] LABS: ABG SAMPLE TYPE ARTERIAL; HCO3 35.2 mmol/L (22.0-26.0); O2(CT) 18.7 mL/dL (15.0-23.0); O2Hb 98.2 % (92.0-98.0); PCO2 49.2 mmHg (35.0-45.0); PO2 130.8 mmHg (80.0-100.0); STICK SITE R.RADIAL; pH 7.472 (7.360-7.450); sO2 98.7 % (92.0-98.0); tCO2 36.7 mmol/L (24.0-30.0)
[2017-02-10 05:38] LABS: ABG COMMENT OFF BIPAP 55MIN
[2017-02-10 05:45] LABS: ALBUMIN 2.1 g/dL (3.4-5.0); CALCIUM 8.6 mg/dL (8.5-10.1); CREATININE 0.7 mg/dL (0.7-1.3); PHOSPHORUS 2.3 mg/dL (2.5-4.9); POTASSIUM 3.7 mmol/L (3.5-5.1); TOTAL BILIRUBIN 0.6 mg/dL (<0.1-1.0)
[2017-02-10 08:28] VITALS: BP 122/73
[2017-02-10 13:17] VITALS: BP 113/65
[2017-02-10 16:52] VITALS: BP 119/57
[2017-02-10 20:46] VITALS: BP 134/82
[2017-02-11 05:06] VITALS: BP 116/73
[2017-02-11 05:50] LABS: HEMATOCRIT 38.7 % (42.0-52.0); HEMOGLOBIN 12.9 gm/dL (14.0-18.0); MCH 31.5 pg (26.0-34.0); MCHC 33.3 g/dL (28.0-37.0); MCV 94.6 fL (80.0-100.0); RBC 4.09 mil/uL (4.50-6.00); RDW 13.4 % (10.5-14.5); WBC 9.1 thou/uL (4.0-11.0)
[2017-02-11 06:09] LABS: ALBUMIN 2.3 g/dL (3.4-5.0); CALCIUM 8.5 mg/dL (8.5-10.1); CREATININE 0.8 mg/dL (0.7-1.3); PHOSPHORUS 2.6 mg/dL (2.5-4.9); POTASSIUM 3.6 mmol/L (3.5-5.1)
[2017-02-11 07:42] VITALS: BP 125/63
[2017-02-11 11:00] VITALS: BP 119/61
[2017-02-11 15:25] VITALS: BP 105/59
[2017-02-11 20:00] VITALS: BP 104/47
[2017-02-12 04:00] VITALS: BP 109/68
[2017-02-12 06:24] LABS: HEMATOCRIT 37.8 % (42.0-52.0); HEMOGLOBIN 12.5 gm/dL (14.0-18.0); MCH 31.5 pg (26.0-34.0); MCHC 33.1 g/dL (28.0-37.0); MCV 95.2 fL (80.0-100.0); RBC 3.97 mil/uL (4.50-6.00); RDW 13.6 % (10.5-14.5); WBC 8.1 thou/uL (4.0-11.0)
[2017-02-12 06:40] LABS: CALCIUM 8.5 mg/dL (8.5-10.1); CREATININE 0.7 mg/dL (0.7-1.3); POTASSIUM 3.7 mmol/L (3.5-5.1)
[2017-02-12 07:58] VITALS: BP 138/69
[2017-02-12 11:55] VITALS: BP 129/69
[2017-02-12] MEDS ORDERED: METOPROLOL SUCC50 MG PO (12:43)
[2017-02-12] MEDS ORDERED: ALBUTEROL2.5 MG/31 INH (12:43)
[2017-02-12] MEDS ORDERED: VANCOMYCIN100 MG/ML PO (12:43)
[2017-02-12] MEDS ORDERED: DUONEB 2.5-0.5 M3 ML INH (12:43)
[2017-02-12] MEDS ORDERED: GABAPENTIN 100100 MG PO (12:43)
== END 2017-02-12 14:17 | DRG 335 ==
LOC: ER 19:44 → EROBS 22:35 → 3N 22:35 → 4W 22:35 → 3N 23:26 → 4W 02-05 10:14 → ICU 02-05 21:06 → 4W 02-06 15:14
PROVIDERS: Family Medicine; Hospitalist; Internal Medicine; Internal Medicine Endocrinology, Diabetes & Metabolism; Internal Medicine Pulmonary Disease; Nurse Practitioner; Otolaryngology; Specialist
PROC: 0DN80ZZ Release Small Intestine, Open Approach (ICD-10-PCS; principal; 2017-01-30)
PROC: 0DNS0ZZ (ICD-10-PCS; principal; 2017-01-30)
PROC: 0WJP4ZZ Inspection of Gastrointestinal Tract, Percutaneous Endoscopic Approach (ICD-10-PCS; principal; 2017-01-30)
PROC: 5A09357 Assistance with Respiratory Ventilation, Less than 24 Consecutive Hours, Continuous Positive Airway Pressure (ICD-10-PCS; 2017-02-09)
DX: K56.60 Unspecified intestinal obstruction (principal); E43 Unspecified severe protein-calorie malnutrition; J96.02 Acute respiratory failure with hypercapnia; J96.01 Acute respiratory failure with hypoxia; I21.4 Non-ST elevation (NSTEMI) myocardial infarction; I26.99 Other pulmonary embolism without acute cor pulmonale; G93.41 Metabolic encephalopathy; J98.11 Atelectasis; Z96.0 Presence of urogenital implants; K59.00 Constipation, unspecified; I25.10 Atherosclerotic heart disease of native coronary artery without angina pectoris; I11.9 Hypertensive heart disease without heart failure; E78.5 Hyperlipidemia, unspecified; I48.2 Chronic atrial fibrillation; K21.9 Gastro-esophageal reflux disease without esophagitis; Z96.653 Presence of artificial knee joint, bilateral; E80.7 Disorder of bilirubin metabolism, unspecified; K66.0 Peritoneal adhesions (postprocedural) (postinfection); E80.4 Gilbert syndrome; E80.6 Other disorders of bilirubin metabolism; E87.6 Hypokalemia; N40.0 Benign prostatic hyperplasia without lower urinary tract symptoms; Z79.01 Long term (current) use of anticoagulants; Z87.891 Personal history of nicotine dependence; Z79.82 Long term (current) use of aspirin; Z79.899 Other long term (current) drug therapy; Z95.1 Presence of aortocoronary bypass graft; Z88.8 Allergy status to other drugs, medicaments and biological substances; Z91.041 Radiographic dye allergy status; Z90.49 Acquired absence of other specified parts of digestive tract; Z95.5 Presence of coronary angioplasty implant and graft; Z68.32 Body mass index [BMI] 32.0-32.9, adult
CPT/HCPCS: 10045; 10078; 10096; 50010; 50101; 50249; 50386; 50455; 50555; 50944; 50953; 50962; 51412; 51489; 52265; 52266; 54118; 56462; 56526; 56527; 56530; 57092; 62110; 62900; 70005

== ENCOUNTER → 2017-03-21 | Outpatient (CLI) | payer OTHER ==
[~2017-03-21] MED LIST changes: +ALBUTEROL2.5 MG/31 INH; +DUONEB 2.5-0.5 M3 ML INH; +GABAPENTIN 100100 MG PO; +METOPROLOL SUCC50 MG PO; +VANCOMYCIN100 MG/ML PO
== END ==
LOC: NUC 11:23
DX: R06.02 Shortness of breath (principal)

== ENCOUNTER → 2017-03-21 | Outpatient (CLI) | payer OTHER | LOC: RAD 09:03 | DX: R91.8 Other nonspecific abnormal finding of lung field (principal) ==

== ENCOUNTER → 2017-04-19 | Outpatient (CLI) | payer OTHER | LOC: SLEEPLAB 16:07 | DX: G47.33 Obstructive sleep apnea (adult) (pediatric) (principal) ==

== ENCOUNTER → 2017-07-03 | Outpatient (CLI) | payer OTHER ==
[2017-07-03 10:42] LABS: ABG SAMPLE TYPE ARTERIAL; BE(vivo) 3.4 mmol/L (-2 to +3); HCO3 28.7 mmol/L (22.0-26.0); O2(CT) 21.3 mL/dL (15.0-23.0); O2Hb 95.2 % (92.0-98.0); PCO2 45.7 mmHg (35.0-45.0); PO2 79.7 mmHg (80.0-100.0); STICK SITE R.RADIAL; pH 7.416 (7.360-7.450); sO2 95.9 % (92.0-98.0); tCO2 30.1 mmol/L (24.0-30.0)
== END ==
LOC: PUL 10:08
PROVIDERS: Internal Medicine Pulmonary Disease
DX: R06.00 Dyspnea, unspecified (principal)